=== PATIENT | female | born 2000 | race Caucasian/White ===

== ENCOUNTER 2022-03-29 22:38 | Emergency (ER) | payer OTHER ==
[~2022-03-29] VITALS: Ht 157.5 cm; Wt 60.8 kg
[2022-03-29 23:21] VITALS: BP 121/71
--- NOTE | 2022-03-30 01:30 | NUR ---
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
--- NOTE | 2022-03-30 01:50 | NUR ---
IV INITIATED 18G R AC. BLOOD COLLECTED AND HANDED TO LAB
--- NOTE | 2022-03-30 01:50 | NUR ---
21/F BIB SELF C/C PALPITATIONS . PER PATIENT SHE HAS BEEN OFF THYROID MEDICATION AND SHE FEELS THAT IS CAUSING HER HEART TO RACE. PATIENT DENIES SOB. PATIENT IS AAOX4 AND AMBULATORY. DOESNT APPEAR TO BE IN DISTRESS. RR EVEN AND UNLABORED. PATIENT PLACED ON HEAD ATHLETIC TRAINER BEDSIDE. BED LOW AND LOCKED. SIDE RAIL UP X1 FOR SAFETY PMHX HYPERTHYROIDISM NKA
[2022-03-30 02:09] LABS: BASOPHILS % (AUTO) 0.3 % (0.0-2.0); EOSINOPHILS # (AUTO) 0.2 K/uL (0-0.4); EOSINOPHILS % (AUTO) 2.1 % (0.0-4.0); HEMATOCRIT 40.9 % (36-48); LYMPHOCYTES % (AUTO) 27.8 % (20.5-51.1); MEAN CORPUSCULAR HEMOGLOBIN 28 pg (27-31); MEAN CORPUSCULAR HGB CONC 34 g/dL (33-37); MEAN CORPUSCULAR VOLUME 83.1 fL (80-94); MONOCYTES # (AUTO) 0.7 K/uL (0.8-1.0); MONOCYTES % (AUTO) 9.2 % (1.7-9.3); NEUTROPHILS # (AUTO) 4.3 K/uL (1.8-7.7); NEUTROPHILS % (AUTO) 60.6 % (42.2-75.2); PLATELET COUNT (AUTO) 307 K/uL (140-450); RED BLOOD CELL COUNT(AUTO) 4.92 MIL/uL (4.20-5.40); WHITE BLOOD COUNT (AUTO) 7.1 K/uL (4.8-10.8)
[2022-03-30 02:14] LABS: ANION GAP 8.9 (8-16); POTASSIUM 3.9 mmol/L (3.5-5.1)
[2022-03-30 02:21] LABS: FREE T4 (FREE THYROXINE) 0.78 ng/dL (0.76-1.46); THYROID STIMULATING HORMONE 0.41 uIU/mL (0.34-3.74)
[2022-03-30] MEDS ORDERED: ATA25 PO (03:01)
--- NOTE | 2022-03-30 03:05 | NUR ---
IV removed, catheter intact and site benign. Applied folded 4x4 gauze and tape to stop bleeding.
[2022-03-30 03:10] VITALS: BP 105/78
[2022-03-30 08:09] LABS: CREATININE 0.6 mg/dL (0.6-1.3)
== END 2022-03-30 03:10 | disposition home or self-care (01) ==
LOC: MED 22:38
DX: R00.2 Palpitations (principal); R51.9 Headache, unspecified; R53.83 Other fatigue; E05.90 Thyrotoxicosis, unspecified without thyrotoxic crisis or storm; Z79.899 Other long term (current) drug therapy
CPT/HCPCS: 36415; 71045; 80048; 81002; 81025; 84439; 84443; 85025; 93005; 99285; Q0092

== ENCOUNTER 2022-06-02 23:57 | Emergency (ER) | payer OTHER ==
[~2022-06-02] VITALS: Ht 157.5 cm; Wt 61.2 kg
[~2022-06-02 23:57] MED LIST: ATA25 PO
[2022-06-03] VITALS: BP 101/81
--- NOTE | 2022-06-03 00:03 | NUR ---
TO LOBBY A/W BED AMBULATORY
[2022-06-03 02:39] LABS: BASOPHILS # (AUTO) 0.1 K/uL (0.00-0.22); BASOPHILS % (AUTO) 0.7 % (0.0-2.0); EOSINOPHILS # (AUTO) 0.2 K/uL (0-0.4); EOSINOPHILS % (AUTO) 1.4 % (0.0-4.0); HEMATOCRIT 40.6 % (36-48); HEMOGLOBIN 13.5 g/dL (12.0-16.0); LYMPHOCYTES # (AUTO) 3.1 K/uL (2.5-16.5); LYMPHOCYTES % (AUTO) 28.2 % (20.5-51.1); MEAN CORPUSCULAR HEMOGLOBIN 28 pg (27-31); MEAN CORPUSCULAR HGB CONC 33 g/dL (33-37); MEAN CORPUSCULAR VOLUME 83.9 fL (80-94); MONOCYTES # (AUTO) 0.7 K/uL (0.8-1.0); MONOCYTES % (AUTO) 6.1 % (1.7-9.3); NEUTROPHILS % (AUTO) 63.6 % (42.2-75.2); PLATELET COUNT (AUTO) 515 K/uL (140-450); RED BLOOD CELL COUNT(AUTO) 4.83 MIL/uL (4.20-5.40); RED CELL DISTRIBUTION WIDTH 12.9 % (11.6-13.7)
[2022-06-03 03:19] LABS: ANION GAP 12.9 (8-16); CARBON DIOXIDE 31.2 mmol/L (21-32); CREATININE 0.5 mg/dL (0.6-1.3); MAGNESIUM 2.2 mg/dL (1.8-2.4); PHOSPHORUS 3.7 mg/dL (2.5-4.9); POTASSIUM 4.1 mmol/L (3.5-5.1); THYROID STIMULATING HORMONE 1.14 uIU/mL (0.34-3.74); TOTAL BILIRUBIN 0.2 mg/dL (0.0-1.0)
[2022-06-03] MEDS ORDERED: ACET-9234 PO (04:35)
[2022-06-03 04:42] VITALS: BP 101/81
--- NOTE | 2022-06-03 04:42 | NUR ---
LEFT WITHOUT PAPERWORK Patient discharged with v/s stable. Written and verbal after care instructions given and explained. Patient alert, oriented and verbalized understanding of instructions. Ambulatory with steady gait. All questions addressed prior to discharge. ID band removed. Patient advised to follow up with PMD. Rx of FIORICET given. Patient educated on indication of medication including possible reaction and side effects. Opportunity to ask questions provided and answered.
== END 2022-06-03 04:42 | disposition home or self-care (01) ==
LOC: MED 23:57
DX: R51.9 Headache, unspecified (principal)
CPT/HCPCS: 36415; 80053; 81025; 83735; 84100; 84443; 85025; 99283

== ENCOUNTER 2023-01-30 21:50 | Emergency (ER) | payer OTHER ==
[~2023-01-30] VITALS: Ht 157.5 cm; Wt 61.2 kg
[~2023-01-30 21:50] MED LIST changes: +ACET-9234 PO
[2023-01-30 22:40] VITALS: BP 132/70; PULSE 112; RESP 20; TEMP 98; O2SAT 98
[2023-01-30 23:12] LABS: FLU A ANTIGEN negative (NEGATIVE); FLU B ANTIGEN NEGATIVE (NEGATIVE)
[2023-01-30] MEDS ORDERED: SUD30 PO (23:43)
[2023-01-30] MEDS ORDERED: PROM118S5 PO (23:43)
[2023-01-30] MEDS ORDERED: FLONAS NS (23:43)
[2023-01-30] MEDS ORDERED: LIDO15SO4 PO (23:43)
== END 2023-01-31 00:08 | disposition home or self-care (01) ==
LOC: MED 21:50
DX: J06.9 Acute upper respiratory infection, unspecified (principal); Z20.822 Contact with and (suspected) exposure to COVID-19; J32.9 Chronic sinusitis, unspecified; Z79.899 Other long term (current) drug therapy
CPT/HCPCS: 99283

== ENCOUNTER 2023-09-06 20:45 | Emergency (ER) | payer MEDICAID, OTHER ==
[~2023-09-06] VITALS: Ht 157.5 cm; Wt 63.5 kg
[~2023-09-06 20:45] MED LIST changes: +FLONAS NS; +LIDO15SO4 PO; +PROM118S5 PO; +SUD30 PO
[2023-09-06 21:17] VITALS: BP 111/79; PULSE 86; RESP 20; TEMP 98.3; O2SAT 99
[2023-09-06 22:14] VITALS: O2SAT 99
[2023-09-06] MEDS ORDERED: PRED20TA5 PO (23:05)
[2023-09-06] MEDS ORDERED: IBUP-2213 PO (23:05)
[2023-09-06 23:12] VITALS: BP 103/51; PULSE 81; RESP 17; TEMP 97.9; O2SAT 99
== END 2023-09-06 23:12 | disposition home or self-care (01) ==
LOC: MED 20:45
DX: R05.9 Cough, unspecified (principal); R06.02 Shortness of breath; M79.18 Myalgia, other site; Z86.39 Personal history of other endocrine, nutritional and metabolic disease; Z79.899 Other long term (current) drug therapy
CPT/HCPCS: 99283

== ENCOUNTER 2024-03-12 02:30 | Emergency (ER) | payer MEDICAID, OTHER ==
[~2024-03-12] VITALS: Ht 157.5 cm; Wt 60.8 kg
[~2024-03-12 02:30] MED LIST changes: +IBUP-2213 PO; +LIDO15SO10 PO; -LIDO15SO4 PO; +PRED20TA5 PO
[2024-03-12 02:43] VITALS: BP 123/66; PULSE 94; RESP 18; TEMP 98.2; O2SAT 100
[2024-03-12] MEDS ORDERED: PENI500T20 PO (03:16)
[2024-03-12] MEDS ORDERED: HYDR-5071 PO (03:16)
== END 2024-03-12 03:20 | disposition home or self-care (01) ==
LOC: MED 02:30
DX: K08.89 Other specified disorders of teeth and supporting structures (principal); Z79.899 Other long term (current) drug therapy
CPT/HCPCS: 81025; 99283